=== PATIENT | female | born 1940 | race Caucasian/White ===

== ENCOUNTER 2020-11-25 10:34 | Outpatient (CLI) | payer MEDICARE, BC, OTHER, SELFPAY ==
--- NOTE | ~2020-11-25 | MM_ITS ---
EXAMINATION: MM screening yolande BI w percy HISTORY: Screening mammogram, history of left breast cancer TECHNIQUE: Craniocaudal and mediolateral oblique 3-D tomosynthesis images were obtained and synthetic 2-D images were generated. CAD analysis was submitted and interpreted. COMPARISON: 10/29/2019, 10/23/2018, 10/09/2017 BREAST PARENCHYMAL COMPOSITION: There are scattered areas of fibroglandular density. FINDINGS: There are stable lumpectomy changes in the left breast. There is no evidence of suspicious mass, calcification, or architectural distortion to suggest malignancy in either breast. There has be en no suspicious interval change. IMPRESSION: 1. No mammographic evidence of malignancy. 2. Recommend routine screening mammography in one year. BI-RADS Category 2: Benign finding(s). Reviewed, dictated and finalized at location A. CULTURAL EXTENSION OFFICER
== END 2020-11-25 10:35 | disposition home or self-care (01) ==
PROVIDERS: PCP Family Medicine; Visit Provider Family Medicine
DX: Z12.31 Encounter for screening mammogram for malignant neoplasm of breast (principal)
CPT/HCPCS: 77063; 77067

== ENCOUNTER 2024-12-24 09:27 | Outpatient (RCR) | payer MEDICARE, BC, OTHER, SELFPAY ==
--- NOTE | 2024-12-24 11:16 | OPREHPOC ---
Outpatient Therapy Plan of Care This is a Multidisciplinary Plan of Care that may contain components documented by all disciplines (PT, OT, and ST.) PT Problem 1 PT Problem #1 Knowledge Deficit PT Goal 1 Goal / Goal Update 1. independent and compliant with HEP Target Visit 6 PT Problem 2 PT Problem #2 Pain PT Goal 1 Goal / Goal Update 1. patient to report 50% reduction in pain/ tingling symptoms in the R lower leg. Target Visit 12 PT Problem 3 PT Problem #3 Impaired Strength PT Goal 1 Goal / Goal Update 1. 5/5 bilateral DF 2. 5/5 bilateral knee strength 3. 4+/5 or better bilateral hip strength Target Visit 12 PT Problem 4 PT Problem #4 Impaired Balance PT Goal 1 Goal / Goal Update 1. tinetti to display moderate fall risk or less Target Visit 12 PT Problem 5 PT Problem #5 Impaired Functional Mobility PT Goal 1 Goal / Goal Update 1. patient to display improved confidence in ambulation 2. no falls reported, and no buckling of the R knee 3. LEFS to display 40% or less functional deficits 4. oswestry to display 30% or less functional deficits Target Visit 12
--- NOTE | 2024-12-24 11:16 | PTOPEVAL1 ---
Assessment and note entered by JT File, PT Evaluation Information Assessment Status Evaluation ICD-10 Condition Codes (PT) Radiculopathy, lumbar region M54.16,Pain in right knee M25.561,Pain in right ankle and joints of right foot M25.571 Other ICD-10 Condition Codes ( S93.409A; S83.206A PT) Subjective Information patient reports her doctor told her she has several issues with her R leg. she reports she been feeling worse for several months. she reports she has pain in the R LE when she tries to walk. she reports the leg will collapse and give out on her. she reports she is afraid she is going to fall and break something. she reports a few years ago she fell in the shower and tore her meniscus in the R knee. she reports she also has pain in the R ankle and in the R lower back. she reports she is going to have an nerve conduction test of the R LE to rule out sciatica. she reports from the knee down she will at times have numbness in the R LE. she reports she has not had falls, but has to hold onto objects all over her house and her walker to prevent falling. Reported Pain Level Pain Score 2: Self Report Assessment PT Clinical Summary mrs. bañuelos is an 84 yo woman who presents to skilled PT services for evaluation of R LE pain. she presents today with signs and symptoms consistent with R lumbar radiculopathy, R medial meniscus injury, and R lateral ankle injury. she displays decreased LE strength, mm tightness, core weakness, poor balance, and unsteady/abnormal gait mechanics. she would benefit from continued skilled PT to address her objective/functional deficits and progress towards a return to her prior level functional activity performance/ quality of life. Plan of Care Interventions Electrical Stimulation,Gait Training,Hot Pack/Cold Pack,Manual Therapy,Neuro Re-education,Patient/ Caregiver Education,Therapeutic Activities, Therapeutic Exercise PT Services Indicated Yes Treatment Frequency and 3x weekly for 12 visits Duration These treatments will address the objective and functional deficits as defined above. The patient will be advanced safely and appropriately in order for the patient to progress towards his/her prior level of function. Additional exercises will be introduced and as well as a comprehensive home exercise program upon discharge, if needed, ?to ensure carryover of functional gains achieved in the clinic. This treatment plan has been reviewed and agreement upon by the patient.
--- NOTE | 2025-01-14 08:10 | OPREHPOC ---
Outpatient Therapy Plan of Care This is a Multidisciplinary Plan of Care that may contain components documented by all disciplines (PT, OT, and ST.) PT Problem 1 PT Problem #1 Knowledge Deficit PT Goal 1 Goal / Goal Update 1. independent and compliant with HEP Target Visit 6 Progress Met PT Problem 2 PT Problem #2 Pain PT Goal 1 Goal / Goal Update 1. patient to report 50% reduction in pain/ tingling symptoms in the R lower leg. Target Visit 12 Progress Not Met PT Problem 3 PT Problem #3 Impaired Strength PT Goal 1 Goal / Goal Update 1. 5/5 bilateral DF 2. 5/5 bilateral knee strength 3. 4+/5 or better bilateral hip strength Target Visit 12 Progress Met PT Problem 4 PT Problem #4 Impaired Balance PT Goal 1 Goal / Goal Update 1. tinetti to display moderate fall risk or less Target Visit 12 Progress Not Met PT Problem 5 PT Problem #5 Impaired Functional Mobility PT Goal 1 Goal / Goal Update 1. patient to display improved confidence in ambulation 2. no falls reported, and no buckling of the R knee -no falls but continues to report knee buckling 3. LEFS to display 40% or less functional deficits 4. oswestry to display 30% or less functional deficits Target Visit 12 Progress Not Met
--- NOTE | 2025-01-14 08:10 | PTOPPROG ---
Assessment and note entered by Shavon Minor, PT Evaluation Information Assessment Status Progress ICD-10 Condition Codes (PT) Radiculopathy, lumbar region M54.16,Pain in right knee M25.561,Pain in right ankle and joints of right foot M25.571 Other ICD-10 Condition Codes ( S93.409A; S83.206A PT) Subjective Information Brinda states she feels about the same since beginning therapy, overall not any better but not any worse. She still experiences pain in the low back with numbness in the R leg, and pain continues to increase with transitional movements such as moving from sitting to supine as well as with any activities in weight bearing. She still uses a WW for ambulation due to reports of feeling like her knee will give out and feeling scared of falling. She will be getting a nerve test on February 01. Assessment PT Clinical Summary Mrs. Roth has attended 10 total skilled PT visits addressing low back pain with radicular symptoms down the R leg as well as R knee and ankle pain from prior falls. Since beginning therapy she has made good improvements in her LE strength but her functional status remains relatively unchanged. She continues to experiences R leg pain with any weight bearing activities as well as back and leg pain with transitional activities such as move from sitting to supine. She will benefit from continued skilled PT intervention to reduce pain and improve function. Plan of Care Interventions Electrical Stimulation,Gait Training,Hot Pack/Cold Pack,Manual Therapy,Neuro Re-education,Patient/ Caregiver Education,Therapeutic Activities, Therapeutic Exercise,Self-Care/Home Management PT Services Indicated Yes Treatment Frequency and Continue per POC Duration These treatments will address the objective and functional deficits as defined above. The patient will be advanced safely and appropriately in order for the patient to progress towards his/her prior level of function. Additional exercises will be introduced and as well as a comprehensive home exercise program upon discharge, if needed, ?to ensure carryover of functional gains achieved in the clinic. This treatment plan has been reviewed and agreement upon by the patient.
--- NOTE | 2025-01-18 07:55 | OPREHPOC ---
Outpatient Therapy Plan of Care This is a Multidisciplinary Plan of Care that may contain components documented by all disciplines (PT, OT, and ST.) PT Problem 1 PT Problem #1 Knowledge Deficit PT Goal 1 Goal / Goal Update 1. independent and compliant with HEP Target Visit 6 Progress Met PT Problem 2 PT Problem #2 Pain PT Goal 1 Goal / Goal Update 1. patient to report 50% reduction in pain/ tingling symptoms in the R lower leg. Target Visit 12 Progress Not Met PT Problem 3 PT Problem #3 Impaired Strength PT Goal 1 Goal / Goal Update 1. 5/5 bilateral DF 2. 5/5 bilateral knee strength 3. 4+/5 or better bilateral hip strength Target Visit 12 Progress Not Met PT Problem 4 PT Problem #4 Impaired Balance PT Goal 1 Goal / Goal Update 1. tinetti to display moderate fall risk or less Target Visit 12 Progress Not Met PT Problem 5 PT Problem #5 Impaired Functional Mobility PT Goal 1 Goal / Goal Update 1. patient to display improved confidence in ambulation. not met 2. no falls reported, and no buckling of the R knee. no falls but continues to report knee buckling 3. LEFS to display 40% or less functional deficits . not met 4. oswestry to display 30% or less functional deficits. met Target Visit 12 Progress Not Met
--- NOTE | 2025-01-18 07:55 | PTOPDC ---
Assessment and note entered by JT File, PT Evaluation Information Assessment Status Discharge ICD-10 Condition Codes (PT) Radiculopathy, lumbar region M54.16,Pain in right knee M25.561,Pain in right ankle and joints of right foot M25.571 Other ICD-10 Condition Codes ( S93.409A; S83.206A PT) Subjective Information patient reports she is really no better since beginning skilled PT. she reports she is no worse, but continues to have pain in the lower back and numbness down the R LE. she reports the R LE still feels like is ervin under her. she reports it is not always with movement or walking, but sometimes she can simply be standing in place. she reports it gets real weak still. Reported Pain Level Pain Score 6,2: Self Report Pain Score 6: Self Report Assessment PT Clinical Summary mrs. bañuelos presents to skilled PT services for her 12th skilled PT visit for lumbar radiculopathy and lower back pain. she has not met any goals for skilled PT, and reports feeling no change in her pain or symptoms. she is scheduled for a nerve conduction test soon. as of this date, we will DC skilled PT, and patient will continue with HEP independent at home. Plan of Care PT Services Indicated Yes
== END 2025-01-18 20:00 | disposition home or self-care (01) ==
LOC: CHSPT 09:27
PROVIDERS: Visit Provider Family Medicine
DX: S93.409A Sprain of unspecified ligament of unspecified ankle, initial encounter (principal); S83.206A Unspecified tear of unspecified meniscus, current injury, right knee, initial encounter; M54.16 Radiculopathy, lumbar region
CPT/HCPCS: 97014; 97110; 97112; 97140; 97161; 97530; G0283

== ENCOUNTER 2025-02-01 12:20 | Outpatient (CLI) | payer MEDICARE, BC, OTHER, SELFPAY ==
--- OUTSIDE RECORDS SUMMARY | 2025-02-01 13:21 | XMS_ITS | Referral Summary ---
Author Organization [facility] Address [address] [place] [address] Phone Care Team Providers Care Forwarder Operator Name Role Phone Alejandro Verduzco MD Primary Care Provider [phone] Kin Carty MD Unavailable [phone] Allergies Active Allergy Reactions Criticality Noted Date Comments Iodinated Contrast Media Unknown 05/07/2018 Latex Penicillins Sulfasalazine Unknown 06/03/2016 Medications amLODIPine (NORVASC) 10 mg tablet 05/07/2016 Active olmesartan-hydr ochlorothiazide (BENICAR HCT) 20-12.5 mg per tablet 05/07/2016 Active furosemide (LASIX) 40 mg tablet 60 mg for 1 week started 05/04/2020 10 04/10/2018 Active loratadine (CLARITIN) 10 mg tablet Take by mouth. 09/14/2008 Active metoprolol XL (TOPROL-XL) 100 mg 24 hr tablet 10 04/10/2018 Act lidia simvastatin (ZOCOR) 10 mg tablet 10 04/10/[address] (ACIPHEX) 20 mg EC tablet 2 (two) times a day 1 04/13/2018 Active vit D3-vit W-httkrlzlx-vps s [id number] cyfp-sfe-jn-mg tablet Take by mouth. Active nitroglycerin (NITROSTAT) 0.4 mg SL tablet 0 03/11/2019 Active olmesartan-hydr ochlorothiazide (BENICAR HCT) 40-25 mg per tablet 11 04/13/2019 Active anastrozole (ARIMIDEX) 1 mg tablet TAKE 1 TABLET BY MOUTH DAILY 30 tablet 5 04/13/2020 Active atorvastatin (LIPITOR) 10 mg tablet 04/13/2020 Active Active Problems Problem Noted Date Diagnosed Date Malignant neoplasm of breast 11/23/2014 Immunizations Immunization Administration Dates Next Due Influenza, Quadrivalent, Spl it, Preservative Free, Intramuscular 08/16/2013 Influenza, Trivalent, IM (MDV) 07/02/2014,2011 Influenza, Unspecified 08/04/2019 ZOSTER Recombinant 04/05/2020 Social History Tobacco Use Types Packs/Day Years Used Date Smoking Tobacco: Never Smokeless Tobacco: Never Alcohol Use Standard Drinks/Week Comments No 0 (1 standard drink = 0.6 oz pur e alcohol) Personal Safety Answer Date Recorded Getting School Help Needed Not on file 12/19 Comments Unknown Sex and Gender Information Value Date Recorded Sex Assigned at Not on file 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 Gender Identity Not on file Sexual Orientation Not on file Last Filed Vital Signs Vital Sign Reading Time Taken Comments Blood Pressure 116/76 05/05/2020 11:47 AM CDT Pulse 76 05/05/2020 11:47 AM CDT Temperature 36.9 C (98.5 F) 05/05/2020 11:47 AM CDT Respiratory Rate 16 05/05/2020 11:47 AM CDT Oxygen Saturation 97% 05/05/2020 11:47 AM CDT Inhaled Oxygen Concentration - - Weight 81.3 kg (179 lb 3.2 oz) 05/05/2020 11:47 AM CDT Height 160 cm (5' 3 ) 05/05/2020 11:47 AM CDT Body Mass Index 31.74 05/05/2020 11:47 AM CDT Plan of Treatment Not on file Insurance MEDICARE FOR LIFE [facility] Care Teams Forwarder Operator Relationship Specialty Start Date End Date Alejandro Verduzco MD PCP - General Family Medicine 04/20/18 Kin Carty MD Medical Oncologist/Material Spreader Hematology and Oncology 05/07/18
--- OUTSIDE RECORDS SUMMARY | 2025-02-01 13:21 | XMS_ITS | Clinical Summary ---
Author Organization [facility] Address [address] [place] [address] Phone Care Team Providers Care Livestock Sales Representative Name Role Phone Alejandro Verduzco MD Primary Care Provider [phone] Kin Carty MD Unavailable [phone] Allergies Active Allergy Reactions Criticality Noted [...] a day 1 04/13/2018 Active vit D3-vit P-pqorvwfdq-ngg s [id number] khag-nud-zf-mg tablet Take by mouth. Active nitroglycerin (NITROSTAT) [...] 07/02/2014,2011 Influenza, Unspecified 08/04/2019 ZOSTER Recombinant 04/05/2020 Surgical History Surgery Date Site/Laterality Comments BREAST BIOPSY BREAST LUMPECTOMY UPPER GASTROINTESTINAL ENDOSCOPY COLONOSCOPY Medical History Medical History Date Comments Breast cancer (HCC) Family History Medical History Relation Name Comments Breast cancer Sister 1 Adenocarcinoma of breast - (Added by TW Conv) Non-Hodgkin's Lymphoma Sister 2 Famil y history of non-Hodgkin's lymphoma - (Added by TW Conv) Relation Name Status Comments Sister 1 Sister 2 Social History Tobacco Use Types Packs/Day Years [...] on file 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
--- OUTSIDE RECORDS SUMMARY | 2025-02-01 13:21 | XMS_ITS | Encounter Summary ---
Author Organization [facility] Address [address] [place] [address] Care Team Providers Care Channel Executive Name Role Phone Zana Sauceda MD Unavailable Unavailable Alejandro Verduzco MD Primary Care Provider [phone] Mayra Lugo MD Unavailable Encounter Details Date Type Department Care Team (Late st Contact Info) Description 06/14/2020 Abstract [facility] [address] [place] [id number] Abstract, Doc [facility] Social History Tobacco Use Types Packs/Day Years Used Date Smoking Tobacco: Never Smokeless Tobacco: Never Alcohol Use Standard Drinks/Week Comments No 0 (1 standard drink = 0.6 oz pur e alcohol) Comments Unknown Sex and Gender Information Value Date Recorded Sex Assigned at Female 11/10/2024 10:22 AM SENIOR BIOINFORMATICS SCIENTIST Legal Sex Female 10:25 PM CDT Gender Identity Not on file Sexual Orientation Not on file 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 No / Unsure 06/05/2020 7:34 AM CDT documented as of this encounter Plan of Treatment Not on file documented as of this encounter Procedures Procedure Name Priority Date/Time Associated Diagnosis Comments CMP (OUTSIDE LAB) Routine 05/14/2020 LIPID PANEL Routine 05/14/2020 documented in this encounter Results * LIPID PANEL (05/14/2020) CHOLESTEROL 127 HDL 43 TRIGLYCERIDES 67 CHOL/HDL RATIO 3.0 LDL (CALCULATED) 71 VLDL CALCULATION 13 05/14/2020 Alejandro Verduzco MD LABORATORY Final Result * CMP (OUTSIDE LAB) (05/14/2020) SODIUM S/P/B 143 POTASSIUM S/P/B 4.6 CHLORIDE S/P/B 103 CO2 26 BUN 18 CREATININE S/P/B 0.86 0.5 - 1.0 EGFR AFR. AMER. 74 <=90 EGFR NON-AFR. AMER. 64 <=90 CALCIUM S/P/B 9.5 GLUCOSE 105 mg/dL TOTAL PROTEIN S/P/B 6.5 ALBUMIN S/P/B 3.9 3.5 - 5.0 AST 18 ALT 13 ALKALINE PHOSPHATASE S/P/B 114 BILIRUBIN TOTAL S/P/B 0.4 05/14/2020 Alejandro Verduzco MD LAB-OUTSIDE/ABSTRACTED Final R esult documented in this encounter Visit Diagnoses Not on filedocumented in this encounter Care Teams Channel Executive Relationship Specialty Start Date End Date Alejandro Verduzco MD [address] [place] [id number] PCP - General FAMILY PRACTICE 04/01/17 Zana Sauceda MD INTERVENTIONAL CARDIOLOGY 05/13/16 02/12/21 Mayra Lugo MD [address] [place] [address] Consulting Physician CARDIOVASCULAR DISEASE 02/13/21 documented as of this encounter
--- OUTSIDE RECORDS SUMMARY | 2025-02-01 13:21 | XMS_ITS | Clinical Summary ---
Author Organization [facility] Address [facility] [place] [address] Care Team Providers Care Automotive Glass Installer Name Role Phone Alejandro Verduzco MD Primary Care Provider [phone] Mayra Lugo MD Unavailable Allergies Active Allergy Reactions Criticality Noted Date Comments Iodine Unknown 06/30/2019 Latex Unknown 06/30/2019 Sulfa Antibiotics Unknown 06/03/2016 Sulfasalazine Unknown 06/03/2016 Medications loratadine (CLARITIN) 10 MG tablet Take by mouth daily. 09/14/2008 Active amlodipine 10 MG tablet Take 10 mg by mouth daily. 2 05/07/2016 Active metoprolol succinate 100 MG 24 hr tablet Take 100 mg by mouth daily. 5 05/07/2016 Active furosemide 40 MG tablet Take 60 mg by mouth daily. 11 06/15/2019 Active rabeprazole EC 20 MG tablet Take 20 mg by mouth 2 (two) times a day. 5 06/15/2019 Active vitamin D3, cholecalciferol , 400 units tablet Take 400 Units by mouth daily. Active atorvastatin 10 MG tablet Take 1 tablet by mouth daily. 07/10/2020 Active nitroglycerin 0.[address] 1 tablet (0.4 mg total) under the tongue every 5 (five) minutes as needed for Chest Pain. 25 tablet 1 04/06/2021 Active Active Problems Problem Noted Date Diagnosed Date Hypertensive heart disease without heart failure 08/04/2019 Complex tear of medial menis cus of right knee as current injury, subsequent encounter 07/22/2019 Right knee pain, unspecified chronicity 07/13/20 Primary osteoarthritis of right knee 07/03/2019 Impaired gait 07/03/2019 Dyspnea on exertion 06/28/2019 Chronic venous insufficiency 04/03/2017 Breast cancer ([facility]) 06/03/2016 Essential hypertension 06/03/2016 Bilateral edema of lower extremity 06/03/2016 Hypercholesteremia 06/03/2016 Resolved Problems Problem Noted Date Diagnosed Date Resolved Date Pre-operative cardiovascular examination 08/04/2019 06/16/2020 Shortness of breath 06/03/2016 06/03/20 16 Encounters Date Type Department Care Team Description 11/10/2024 10:24 AM FUEL CELL ASSEMBLER - 11/10/2024 11:59 PM FUEL CELL ASSEMBLER Hospital Encounter [facility] [address] [place] [address] Marquita Vazquez, PA Discharge Disposition: Home or Self Care (Routine Discharge) 11/10/2024 Travel from Last 3 Months Immunizations Immunization Administration Dates Next Due Fluzone High Dose - >Age 65 (Prefilled Syringe) 09/21/2021,07/11/2021,07/15/2020 Influenza (Generic) 08/04/2019,07/02/2014,2011 Influenza Adult (Generic) 08/16/2013 Shingrix 04/05/2020 Family History Medical History Relation Comments Coronary artery disease Father TB Father Coronary artery disease Mother TB Mother Relation Status Comments Father Mother of CAD Other Other Family history i s positive for coronary heart disease Social History Tobacco Use Types Packs/Day Years Used Date Smoking Tobacco: Never Smokeless Tobacco: Never Alcohol Use Standard Drinks/Week Comments No 0 (1 standard drink = 0.6 oz pur e alcohol) Comments No Sex and Gender Information Value Date Recorded Sex Assigned at Female 11/10/2024 10:22 AM FUEL CELL ASSEMBLER Legal Sex Female 10:25 PM CDT Gender Identity Not on file Sexual Orientation Not on file 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 Not on file Not on fi le Last Filed Vital Signs Vital Sign Reading Time Taken Comments Blood Pressure 130/64 04/06/2021 9:36 AM CDT Pulse 75 04/06/2021 9:35 AM CDT Temperature - - Respiratory Rate 18 04/06/2021 9:35 AM CDT Oxygen Saturation 97% 04/06/2021 9:35 AM CDT Inhaled Oxygen Concentration - - Weight 82.6 kg (182 lb) 04/06/2021 9:35 AM CDT Height 160 cm (5' 3 ) 04/06/2021 9:35 AM CDT Body Mass Index 32.24 04/06/2021 9:35 AM CDT Plan of Treatment Health Maintenance Due Date Last Done Comments DTaP, Tdap and Td Vaccines ( 1 - Tdap) 1959 Pneumococcal Vaccine: 50+ Years (1 of 1 - PCV) 1990 Annual Medicare Wellness Visit 2005 RSV Immunization or 60+ Years (1 - 1-dose 75+ series) 2015 Zoster Vaccines (2 of 2) 05/31/2020 04/05/2020 COVID-19 Vaccine (4 - 2023-2 5 season) 2024 08/20/2021, 2020, 11/07/2020 Dexa Scan (General) Completed 05/29/2021 Meningococcal B Vaccine Aged Out No l onger eligible based on patient's age to complete this topic Meningococcal Vaccine Aged Out No oliver hector eligible based on patient's age to complete this topic RSV Immunizations Under 20 Months Aged Out No longer eligible b ased on patient's age to complete this topic Procedures Procedure Name Priority Date/Time Associated Diagnosis Comments XR KNEE RT 3V Routine 11/10/2024 11:37 AM FUEL CELL ASSEMBLER Pain in right knee US KACIE DUPLEX LOW EXT RT STAT 11/10/2024 11:06 AM FUEL CELL ASSEMBLER Right calf pain BONE DENSITY/DEXA Routine 05/29/2021 9:2 9 AM CDT Postmenopausal from Last 3 Months or Most Recently Relevant to Health Maintenance Results * XR KNEE RT 3V (11/10/2024 11:37 AM FUEL CELL ASSEMBLER) Anatomical Region Laterality Modality Knee Radiographic Ginna ging 11/11/2024 7:16 PM FUEL CELL ASSEMBLER Impressions 11/11/2024 7:17 PM FUEL CELL ASSEMBLER IMPRESSION: No acute findings. Mild degenerative changes. Referred By: MARQUITA VAZQUEZ Interpreted By: Aden Roth MD, 11/11/2024 7:16 PM Narrative 11/11/2024 7:17 PM FUEL CELL ASSEMBLER [address] [place] [address] Examination: Right knee. Exam time: 1112 hours. Clinical history: Pain. Comparison: 06/29/2019. Technique: Three views. Findings: No fracture, dislocation or other acute bony abnormality is identified. There are mild degenerative changes manifested by patellofemoral and medial femorotibial joint space narrowing and periarticular osteophyte formation. No other significant bone or joint abnormality is noted.Atherosclerotic calcification is noted. The soft tissues are otherwise unremarkable. Procedure Note dAen Roth MD - 11/11/[address] [place] [address] Examination: Right knee. Exam time: 1112 hours. Clinical history: Pain. Comparison: 06/29/2019. Technique: Three views. Findings: No fracture, dislocation or other acute bony abnormality isidentified. There are mild degenerative changes manifested bypatellofemoral and medial femorotibial joint space narrowing andperiarticular osteophyte formation. No other significant bone or jointabnormality is noted.Atherosclerotic calcification is noted. The softtissues are otherwise unremarkable. IMPRESSION: No acute findings. Mild degenerative changes. Referred By: MARQUITA VAZQUEZ Interpreted By: Aden Roth MD, 11/11/2024 7:16 PM us [facility] Final Result * US KACIE DUPLEX LOW EXT RT (11/10/2024 11:06 AM FUEL CELL ASSEMBLER) Anatomical Region Laterality Modality NA Ultrasound 11/10/2024 11:1 4 AM FUEL CELL ASSEMBLER Impressions 11/10/2024 11:14 AM FUEL CELL ASSEMBLER IMPRESSION: No evidence of deep venous thrombosis. Ordered By: MARQUITA VAZQUEZ Interpreted By: Aden Roth MD, 11/10/2024 11:14 AM Narrative 11/10/2024 11:14 AM FUEL CELL ASSEMBLER [address] [place] [address] Examination: Right lower extremity venous color Doppler ultrasound. Exam time: 1048 hours. Clinical history: Calf pain. Comparison: 02/25/2018. Technique: Grayscale and color Doppler images including spectral analysis. Findings: Color Doppler evaluation of the deep veins of the right lower extremity demonstrates normal appearing color flow, spectra and compressibility throughout. No intraluminal filling defects are identified. Procedure Note Aden Roth MD - 11/10/2024 [facility] [address] [place] [address] Examination: Right lower extremity venous color Doppler ultrasound. Exam time: 1048 hours. Clinical history: Calf pain. Comparison: 02/25/2018. Technique: Grayscale and color Doppler images including spectralanalysis. Findings: Color Doppler evaluation of the deep veins of the right lowerextremity demonstrates normal appearing color flow, spectra andcompressibility throughout. No intraluminal filling defects areidentified. IMPRESSION: No evidence of deep venous thrombosis. Ordered By: MARQUITA VAZQUEZ Interpreted By: Aden Roth MD, 11/10/2024 11:14 AM [facility] Final Result * BONE DENSITY/DEXA (05/29/2021 9:29 AM CDT) Anatomical Region Laterality Modality Bone Bone Density 05/30/2021 8:14 PM CDT Impressions 05/30/2021 8:16 PM CDT Impression: Within normal limits in the lumbar spine and both hips. Referred By: ALEJANDRO VERDUZCO Interpreted By: Aden Roth MD, 05/30/2021 8:14 PM Narrative 05/30/2021 8:16 PM CDT Examination: DEXA Bone densitometry Clinical history: Postmenopausal. Osteoporosis screening. Comparison: None. Technique: DEXA bone mineral density evaluation was performed in the AP projection over the lumbar spine and over both hips in the AP projection utilizing standard imaging techniques. Assessment: The BMD measured at the AP spine L1-L4 is 1.019 g/cm2 with a T-score of 0.3 and a Z-score of 2.4. Bone density is up to 10% below young normal. This patient is considered normal according to the World Health Organization (WHO) criteria. Fracture risk is low. The BMD measured at the femur total left is 0.875 g/cm2 with a T-score of by 0.5 and a Z-score of 1.5. Bone density is up to 10% below young normal. This patient is considered normal according to the World Health Organization (WHO) criteria. Fracture risk is low. The BMD measured at the femur total right is 0.878 g/cm2 with a T-score of -0.5 and a Z-score of 1.6. Bone density is up to 10% below young normal. This patient is considered normal according to the World Health Organization (WHO) criteria. Fracture risk is low. Recommendations: All patients should ensure an adequate intake of dietary calcium and vitamin D. The NOF recommend adults under the age of 50 need 1000 mg of calcium and 400-800 IU of vitamin D daily. Effective therapy for the prevention and treatment of osteoporosis include biphosphonates. Follow-up: People with diagnosed cases of osteoporosis or at high risk for fracture should have regular bone mineral density test. For patients eligible for Medicare, routine testing is allowed once every 2 years. Testing frequency can be increased to one year for patients who have rapidly progressing disease, those who are receiving or discontinuing medical therapy to restore bone mass, or have additional risk factors. Based on these results, a followup exam is recommended in two years. Procedure Note Aden Roth MD - 05/30/2021 Examination: DEXA Bone densitometry Clinical history: Postmenopausal. Osteoporosis screening. Comparison: None. Technique: DEXA bone mineral density evaluation was performed in the APprojection over the lumbar spine and over both hips in the AP projectionutilizing standard imaging techniques. Assessment: The BMD measured at the AP spine L1-L4 is 1.019 g/cm2 with a T-score of0.3 and a Z-score of 2.4. Bone density is up to 10% below young normal.This patient is considered normal according to the World HealthOrganization (WHO) criteria. Fracture risk is low. The BMD measured at the femur total left is 0.875 g/cm2 with a T-score ofby 0.5 and a Z-score of 1.5. Bone density is up to 10% below youngnormal. This patient is considered normal according to the World HealthOrganization (WHO) criteria. Fracture risk is low. The BMD measured at the femur total right is 0.878 g/cm2 with a T-score of-0.5 and a Z-score of 1.6. Bone density is up to 10% below youngnormal. This patient is considered normal according to the World HealthOrganization (WHO) criteria. Fracture risk is low. Recommendations: All patients should ensure an adequate intake of dietary calcium andvitamin D. The NOF recommend adults under the age of 50 need 1000 mg ofcalcium and 400-800 IU of vitamin D daily. Effective therapy for theprevention and treatment of osteoporosis include biphosphonates. Follow-up: People with diagnosed cases of osteoporosis or at high risk for fractureshould have regular bone mineral density test. For patients eligible forMedicare, routine testing is allowed once every 2 years. Testing frequencycan be increased to one year for patients who have rapidly progressingdisease, those who are receiving or discontinuing medical therapy torestore bone mass, or have additional risk factors. Based on these results, a followup exam is recommended in two years. Impression: Within normal limits in the lumbar spine and both hips. Referred By: ALEJANDRO VERDUZCO Interpreted By: Aden Roth MD, 05/30/2021 8:14 PM Alejandro Verduzco MD DEXA Final Result from Last 3 Months or Most Recently Relevant to Health Maintenance Insurance MEDICARE MEDICARE [facility] Advance Directives Documents on File Type Date Recorded Patient Application Support Manager Expl anation Power of Chemical Plant Operator Supervisor 08/13/2019 12:56 PM 08/10 POA FOR HEALTH CARE Care Teams Automotive Glass Installer Relationship Specialty Start Date End Date Alejandro Verduzco MD [address] [place] [phone] PCP - General FAMILY PRACTICE 04/01/17 Mayra Lugo MD [address] [place] [address] Consulting Physician CARDIOVASCULAR DISEASE 02/13/21
--- OUTSIDE RECORDS SUMMARY | 2025-02-01 13:21 | XMS_ITS | Encounter Summary ---
Author Organization [facility] Address [address] [place] [address] Care Team Providers Care Telecommunications Professional Name Role Phone Zana Sauceda MD Unavailable Unavailable Alejandro Verduzco MD Primary Care Provider [phone] Mayra Lugo MD Unavailable Encounter Details Date Type Department Care Team (Late st Contact Info) Description 05/26/2019 Abstract [facility] [address] [place] [id number] Abstract, Doc [facility] Social History Tobacco Use Types Packs/Day Years Used Date Smoking Tobacco: Never Smokeless Tobacco: Never Alcohol Use Standard Drinks/Week Comments No 0 (1 standard drink = 0.6 oz pur e alcohol) Comments Unknown Sex and Gender Information Value Date Recorded Sex Assigned at Female 11/10/2024 10:22 AM INTERMISSION COORDINATOR Legal Sex Female 10:25 PM CDT Gender Identity Not on file Sexual Orientation Not on file 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 Not on file Not on fi le documented as of this encounter Plan of Treatment Not on file documented as of this encounter Procedures Procedure Name Priority Date/Time Associated Diagnosis Comments LIPID PANEL (OUTSIDE LAB) Routine 05/14/2019 CMP (OUTSIDE LAB) Routine 05/14/2019 documented in this encounter Results * LIPID PANEL (OUTSIDE LAB) (05/14/2019) CHOLESTEROL 144 TRIGLYCERIDES 117 HDL 43 LDL (CALCULATED) 78 VLDL CALCULATION 23 CHOL/HDL RATIO 3.3 05/14/2019 us Doc [facility] Abstract LAB-OUTSIDE/ABSTRACTED Final Result * (ABNORMAL) CMP (OUTSIDE LAB) (05/14/2019) SODIUM S/P/B 142 POTASSIUM S/P/B 4.4 CHLORIDE S/P/B 102 CO2 25 BUN 20 CREATININE S/P/B 1.03(A) 0.5 - 1.0 EGFR AFR. AMER. 60 <=90 EGFR NON-AFR. AMER. 52 <=90 CALCIUM S/P/B 9.5 GLUCOSE 102 mg/dL TOTAL PROTEIN S/P/B 6.9 ALBUMIN S/P/B 3.8 3.5 - 5.0 AST 14 ALT 12 ALKALINE PHOSPHATASE S/P/B 101 BILIRUBIN TOTAL S/P/B 0.2 05/14/2019 us Doc [facility] Abstract LAB-OUTSIDE/ABSTRACTED Final Result documented in this encounter Visit Diagnoses Not on filedocumented in this encounter Care Teams Telecommunications Professional Relationship Specialty Start Date End Date Alejandro Verduzco MD [address] [place] [id number] PCP - General FAMILY PRACTICE 04/01/17 Zana Sauceda MD INTERVENTIONAL CARDIOLOGY 05/13/16 02/12/21 Mayra Lugo MD [address] [place] [address] Consulting Physician CARDIOVASCULAR DISEASE 02/13/21 documented as of this encounter
--- OUTSIDE RECORDS SUMMARY | 2025-02-01 13:21 | XMS_ITS | Encounter Summary ---
Author Organization [facility] Address [address] [place] [address] Phone Care Team Providers Care Terminal Clerk Name Role Phone Alejandro Verduzco MD Primary Care Provider [phone] Kin Carty MD Unavailable [phone] Encounter Details Date Type Department Care Team (Latest Contact Info) Description 10/29/2019 Orders Only [facility] Scanning, Provider Social History Tobacco Use Types Packs/Day Years Used Date Smoking Tobacco: Never Smokeless Tobacco: Never Alcohol Use Standard Drinks/Week Comments No 0 (1 standard drink = 0.6 oz pur e alcohol) Comments Unknown Sex and Gender Information Value Date Recorded Sex Assigned at Not on file Legal Sex Female 5:43 AM TROLLEY CLEANER Gender Identity Not on file Sexual Orientation Not on file documented as of this encounter Plan of Treatment Not on file documented as of this encounter Procedures Procedure Name Priority Date/Time Associated Diagnosis Comments SCAN - RADIOLOGY/IMAGING 10/29/2019 documented in this encounter Results * SCAN - RADIOLOGY/IMAGING (10/29/2019) Anatomical Region Laterality Modality Other us Provider Scanning Final Result documented in this encounter Visit Diagnoses Not on filedocumented in this encounter Care Teams Terminal Clerk Relationship Specialty Start Date End Date Alejandro Verduzco MD PCP - General Family Medicine 04/20/18 Kin Carty MD Medical Oncologist/Registered Nurse Cardiac Hematology and Oncology 05/07/18 documented as of this encounter
--- OUTSIDE RECORDS SUMMARY | 2025-02-01 13:21 | XMS_ITS | Encounter Summary ---
Author Organization [facility] Address [address] [place] [address] Care Team Providers Care Margarine Churn Operator Name Role Phone Toni Kat MD Primary Care Provider [phone] Zana Sauceda MD Unavailable Unavailable Alejandro Verduzco MD Primary Care Provider [phone] Mayra Lugo MD Unavailable Encounter Details Date Type Department Care Team (Late st Contact Info) Description 09/04/2012 Abstract [facility] [address] [place] [address] Zana Sauceda MD Social History Tobacco Use Types Packs/Day Years Used Date Smoking Tobacco: Never Alcohol Use Standard Drinks/Week Comments No 0 (1 standard drink = 0.6 oz pur e alcohol) Comments Unknown Sex and Gender Information Value Date Recorded Sex Assigned at Female 11/10/2024 10:22 AM SCALE ATTENDANT Legal Sex Female 10:25 PM CDT Gender Identity Not on file Sexual Orientation Not on file 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 Not on file Not on fi documented as of this encounter Plan of Treatment Not on file documented as of this encounter Visit Diagnoses Not on filedocumented in this encounter Care Teams Margarine Churn Operator Relationship Specialty Start Date End Date Toni Kat MD [address] [place] [address] PCP - General INTERNAL MEDICINE 05/13/16 06/02/16 Alejandro Verduzco MD [address] [place] [place] [phone] PCP - General FAMILY PRACTICE 04/01/17 Zana Sauceda MD [address] [place] [address] INTERVENTIONAL CARDIOLOGY 05/13/16 02/12/21 Mayra Lugo MD [address] [place] [address] Consulting Physician CARDIOVASCULAR DISEASE 02/13/21 documented as of this encounter
--- NOTE | 2025-02-01 14:45 | NEURO_ITS ---
Impression: # Complains of numbness of feet. ? # Normal Nerve Conduction Study. ? # Normal needle/EMG exam. ? # Clinical correlation recommended. Nerve Conduction Studies Anti Sensory Summary Table ?Stim Site NR Peak (ms) P-T Amp (?V) Site1 Site2 Delta-P (ms) Dist (cm) Tj (m/s) Left Sup Fibular Anti Sensory (Ant Lat Mall) 14 cm ? 3.0 4.2 14 cm Ant Lat Mall 3.0 16.0 53 Right Sup Fibular Anti Sensory (Ant Lat Mall) 14 cm ? 2.8 9.1 14 cm Ant Lat Mall 2.8 16.0 57 Left Sural Anti Sensory (Lat Mall) Calf ? 3.3 11.3 Calf Lat Mall 3.3 16.0 48 Right Sural Anti Sensory (Lat Mall) Calf ? 2.4 17.1 Calf Lat Mall 2.4 14.0 58 Motor Summary Table ?Stim Site NR Onset (ms) O-P Amp (mV) Site1 Site2 Delta-0 (ms) Dist (cm) Tj (m/s) Left Peroneal Motor (Vastus Med) Ankle ? 3.9 2.6 Popit Ankle 8.9 40.0 45 Popit ? 12.8 1.6 Right Peroneal Motor (Vastus Med) Ankle ? 3.8 4.6 Popit Ankle 8.2 42.0 51 Popit ? 12.0 4.4 Left Tibial Motor (Abd Rocha Brev) Ankle ? 4.0 6.9 Knee Ankle 7.7 40.0 52 Knee ? 11.7 4.6 Right Tibial Motor (Abd Rocha Brev) Ankle ? 3.8 4.4 Knee Ankle 7.8 40.0 51 Knee ? 11.6 3.2 F Wave Studies ?NR F-Lat (ms) L-R F-Lat (ms) Left Peroneal (Mrkrs) (EDB) ? 48.86 0.94 Right Peroneal (Mrkrs) (EDB) ? 47.93 0.94 Left Tibial (Mrkrs) (Abd Hallucis) ? 50.12 0.57 Right Tibial (Mrkrs) (Abd Hallucis) ? 49.56 0.57 EMG ?Side Muscle Nerve Root Ins Act Fibs Amp Dur Recrt Comment Right AntTibialis Dp Br Fibular L4-5 Nml Nml Nml Nml Nml Right Gastroc Tibial S1-2 Nml Nml Nml Nml Nml Right Fibularis Long Sup Br Fibular L5-S1 Nml Nml Nml Nml Nml Right Flex Dig Long Tibial L5-S2 Nml Nml Nml Nml Nml Right Ext Dig Brev Dp Br Fibular L5, S1 Nml Nml Nml Nml Nml Right QuadratusFem QuadFemoris L4-5, S1 Nml Nml Nml Nml Nml Left AntTibialis Dp Br Fibular L4-5 Nml Nml Nml Nml Nml Left Gastroc Tibial S1-2 Nml Nml Nml Nml Nml Left Fibularis Long Sup Br Fibular L5-S1 Nml Nml Nml Nml Nml Left Flex Dig Long Tibial L5-S2 Nml Nml Nml Nml Nml Left Ext Dig Brev Dp Br Fibular L5, S1 Nml Nml Nml Nml Nml Left QuadratusFem QuadFemoris L4-5, S1 Nml Nml Nml Nml Nml MTDD
== END 2025-02-01 12:21 | disposition home or self-care (01) ==
LOC: ANHNEURO 12:21
PROVIDERS: Visit Provider Family Medicine
DX: M54.16 Radiculopathy, lumbar region (principal)
CPT/HCPCS: 95886; 95910

== ENCOUNTER 2025-04-29 10:49 | Emergency (ER) | payer MEDICARE, BC, OTHER, SELFPAY ==
--- NOTE | ~2025-04-29 | XR_ITS ---
XR wrist LT min 3V 04/29/2025 11:36 INDICATION: Left wrist pain PROCEDURE: 4 views left wrist COMPARISON: No prior studies for comparison. FINDINGS: Fracture, dislocation or subluxation is not identified. Osteopenia. The soft tissues appear within normal limits. No foreign bodies are identified. IMPRESSION: 1: NO ACUTE BONE OR JOINT ABNORMALITY IDENTIFIED. Reviewed, dictated and finalized at location A.
--- OUTSIDE RECORDS SUMMARY | 2025-04-29 10:54 | XMS_ITS | Encounter Summary ---
Author Organization [facility] Address [address] [place] [address] Care Team Providers Care Medical Chief Technician Name Role Phone Toni Kat MD Primary Care Provider [phone] Zana Sauceda MD Unavailable Unavailable Alejandro Verduzco MD Primary Care Provider [phone] Mayra Lugo MD Unavailable Encounter Details Date Type Department Care Team (Late st Contact Info) Description 09/04/2012 Abstract [facility] [place] [address] [place] [address] Zana Sauceda MD Social History Tobacco Use Types Packs/Day Years Used Date Smoking Tobacco: Never Alcohol Use Standard Drinks/Week Comments No 0 (1 standard drink = 0.6 oz pur e alcohol) Comments Unknown Sex and Gender Information Value Date Recorded Sex Assigned at Female 11/10/2024 10:22 AM METAL BONDING WORKER Legal Sex Female 10:25 PM CDT Gender Identity Not on file Sexual Orientation Not on file 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 Not on file Not on fi le documented as of this encounter Plan of Treatment Not on file documented as of this encounter Visit Diagnoses Not on filedocumented in this encounter Care Teams Medical Chief Technician Relationship Specialty Start Date End Date Toni Kat MD [address] [place] [address] PCP - General INTERNAL MEDICINE 05/13/16 06/02/16 Alejandro Verduzco MD [address] [place] [address] PCP - General FAMILY PRACTICE 04/01/17 Zana Sauceda MD [address] [place] [address] INTERVENTIONAL CARDIOLOGY 05/13/16 02/12/21 Mayra Lugo MD [address] [place] [address] Consulting Physician CARDIOVASCULAR DISEASE 02/13/21 documented as of this encounter
--- OUTSIDE RECORDS SUMMARY | 2025-04-29 10:54 | XMS_ITS | Referral Summary ---
Author Organization [facility] Address [address] [place] [address] Phone Care Team Providers Care Head Of Marketing Name Role Phone Alejandro Verduzco MD Primary Care Provider [phone] Kin Carty MD Unavailable [phone] Allergies Active Allergy Reactions Criticality Noted [...] a day 1 04/13/2018 Active vit D3-vit D-bapglpgcw-vjd s [id number] uqjl-smf-tu-mg tablet Take by mouth. Active nitroglycerin (NITROSTAT) [...] on file Legal Sex Female 5:43 AM COLOR SEPARATION PHOTOGRAPHER Gender Identity Not on file Sexual Orientation [...] 11:47 AM CDT Height 160 cm (5' 3) 05/05/2020 11:47 AM CDT Body Mass Index 31.74 05/05/2020 11:47 AM CDT Plan of Treatment Not on file Insurance MEDICARE FOR LIFE [facility] Care Teams Head Of Marketing Relationship Specialty Start Date End Date Alejandro Verduzco MD PCP - General Family Medicine 04/20/18 Kin Carty MD Medical Oncologist/Flight Communications Officer Hematology and Oncology 05/07/18
--- OUTSIDE RECORDS SUMMARY | 2025-04-29 10:54 | XMS_ITS | Encounter Summary ---
Author Organization [facility] Address [address] [place] [address] Care Team Providers Care Director Educational Radio Name Role Phone Zana Sauceda MD Unavailable Unavailable Alejandro Verduzco MD Primary Care Provider [phone] Mayra Lugo MD Unavailable Encounter Details Date Type Department Care Team (Late st Contact Info) Description 05/26/2019 [facility] [address] [place] [id number] Abstract, Doc [facility] Social History Tobacco Use Types Packs/Day Years Used Date Smoking Tobacco: Never Smokeless Tobacco: Never Alcohol Use Standard Drinks/Week Comments No 0 (1 standard drink = 0.6 oz pur e alcohol) Comments Unknown Sex and Gender Information Value Date Recorded Sex Assigned at Female 11/10/2024 10:22 AM FAMILY SERVICE CENTER DIRECTOR Legal Sex Female 10:25 PM CDT Gender Identity Not on file Sexual Orientation Not on file 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
--- OUTSIDE RECORDS SUMMARY | 2025-04-29 10:54 | XMS_ITS | Clinical Summary ---
Author Organization [facility] Address [address] [place] [address] Care Team Providers Care Cfa Name Role Phone Alejandro Verduzco MD Primary Care Provider [phone] Mayra Lugo MD Unavailable Allergies Active Allergy [...] by mouth 2 (two) times a day. 06/15/2019 Active vitamin D3, cholecalciferol , 400 [...] 07/22/2019 Right knee pain, unspecified chronicity 07/13/20 19 Primary osteoarthritis of right knee 07/03/2019 Impaired gait 07/03/2019 Dyspnea on exertion 06/28/2019 Chronic venous insufficiency 04/03/2017 Breast cancer ([facility]) 06/03/2016 Essential hypertension 06/03/2016 Bilateral edema of lower extremity 06/03/2016 Hypercholesteremia 06/03/2016 Resolved Problems Problem Noted Date Diagnosed Date Resolved Date Pre-operative cardiovascular examination 08/04/2019 06/16/2020 Shortness of breath 06/03/2016 06/03/20 16 Encounters Date Type Department Care Team Description 02/18/2025 6:44 AM CDT - 02/18/2025 11:59 PM CDT Hospital Encounter [facility] [address] [place] [address] Jany Yin, PARTY PLAN SALES AGENT Discharge Disposition: Home or Self Care (Routine Discharge) 02/18/2025 Travel 02/09/2025 7:51 AM CDT - 02/09/2025 11:59 PM CDT Hospital Encounter [facility] [address] [place] [address] Alejandro Verduzco MD Discharge Disposition: Home or Self Care (Routine Discharge) 02/09/2025 Travel from Last 3 Months Immunizations Immunization [...] Sex Assigned at Female 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 Legal Sex Female 10:25 PM CDT Gender Identity Not on file Sexual Orientation Not on file 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 Not on file [...] 9:35 AM CDT Height 160 cm (5' 3) 04/06/2021 9:35 AM CDT Body Mass Index [...] Procedure Name Priority Date/Time Associated Diagnosis Comments MRI KNEE RT WO CON Routine 02/18/2025 8: 03 AM CDT Pain in right knee MRI LUMB SPINE WO CON Routine 02/09/2025 8:42 AM CDT Right lumbar radiculopathy BONE DENSITY/DEXA Routine 05/29/2021 9:2 9 AM CDT Postmenopausal from Last 3 Months or Most Recently Relevant to Health Maintenance Results * MRI KNEE RT WO CON (02/18/2025 8:03 AM CDT) Anatomical Region Laterality Modality Knee Magnetic Resonan ce 02/18/2025 9:34 AM CDT Impressions 02/18/2025 9:52 AM CDT IMPRESSION: Tear and degeneration posterior horn medial meniscus. Subcortical marrow edema or bony sclerosis in the medial tibial plateau with probable tiny linear cartilaginous defect in the cartilage on the medial tibial plateau extending to a small subcortical cysts. Small joint effusion. Small popliteal cyst. Ordered By: JANY YIN Interpreted By: Rocael Mckeon MD, 02/18/2025 9:34 AM Narrative 02/18/2025 9:52 AM CDT [place] [address] [facility] [place] [address] 02/18/2025, 7:35 AM. HISTORY: Right knee pain. Pain started in October. Knee gives out. History of right tibial plateau fracture and medial meniscal tear 6 years ago after a fall. No knee surgery. EXAM: MRI the right knee without contrast. MR imaging was performed in the axial, the sagittal and the coronal planes utilizing T1, proton density, fat sat proton density, fat sat T2 and T2 Rox thin section sequence imaging. Correlation to radiographic imaging 11/10/2024 and prior MR imaging 07/20/2019. FINDINGS: Horizontal tear to inferior apical surface posterior horn medial meniscus both also within the area of meniscal tear or degeneration The root of the posterior horn medial meniscus. The body and anterior horn of the medial meniscus and the lateral meniscus appear intact and normal. The cruciate ligaments, medial collateral ligament, distal quadriceps tendon and patellar tendons are intact and normal in appearance. No remarkable thinning of the articular cartilage on the femoral condyles, tibial plateaus nor dorsal patellar surfaces. Small joint effusion. Small popliteal cyst on the deep and medial surfaces of the medial head of the gastrocnemius. No marrow replacement or gross bone destruction distal femur, nor proximal fibula. There is some increased fat sat T2 signal in the subcortical region of the medial aspect of the medial tibial plateau which may indicate some bony sclerosis or fibrosis with a small thin sclerotic wall subcortical cyst seen on plain film imaging. This could be secondary to an old occult osteochondral fracture has there appears to be a tiny focal linear defect in the articular cartilage on the coronal fat sat proton density sequence 14. Procedure Note Rocael Mckeon MD - 02/18/2025 [facility] [address] [place] [address] 02/18/2025, 7:35 AM. HISTORY: Right knee pain. Pain started in October. Knee gives out. Historyof right tibial plateau fracture and medial meniscal tear 6 years agoafter a fall. No knee surgery. EXAM: MRI the right knee without contrast. MR imaging was performed in the axial, the sagittal and the coronal planesutilizing T1, proton density, fat sat proton density, fat sat T2 and T2Dess thin section sequence imaging. Correlation to radiographic imaging11/10/2024 and prior MR imaging 07/20/2019. FINDINGS: Horizontal tear to inferior apical surface posterior horn medialmeniscus both also within the area of meniscal tear or degeneration The root of the posterior horn medial meniscus. The body and anterior hornof the medial meniscus and the lateral meniscus appear intact and normal.The cruciate ligaments, medial collateral ligament, distal quadricepstendon and patellar tendons are intact and normal in appearance. Noremarkable thinning of the articular cartilage on the femoral condyles,tibial plateaus nor dorsal patellar surfaces. Small joint effusion. Smallpopliteal cyst on the deep and medial surfaces of the medial head of thegastrocnemius. No marrow replacement or gross bone destruction distalfemur, nor proximal fibula. There is some increased fat sat T2 signal inthe subcortical region of the medial aspect of the medial tibial plateauwhich may indicate some bony sclerosis or fibrosis with a small thinsclerotic wall subcortical cyst seen on plain film imaging. This could besecondary to an old occult osteochondral fracture has there appears to sumeet tiny focal linear defect in the articular cartilage on the coronal fatsat proton density sequence 14. IMPRESSION: Tear and degeneration posterior horn medial meniscus. Subcortical marrowedema or bony sclerosis in the medial tibial plateau with probable tinylinear cartilaginous defect in the cartilage on the medial tibial plateauextending to a small subcortical cysts. Small joint effusion. Smallpopliteal cyst. Ordered By: JANY YIN Interpreted By: Rocael Mckeon MD, 02/18/2025 9:34 AM us Jany Yin NP MRI Final Result * MRI LUMB SPINE WO CON (02/09/2025 8:42 AM CDT) Anatomical Region Laterality Modality Spine Magnetic Resonan ce 02/10/2025 2:34 PM CDT Impressions 02/10/2025 2:40 PM CDT IMPRESSION: Multilevel lumbar spinal canal, neural foraminal, and lateral recess narrowing as detailed level by level above. Referred By: ALEJANDRO VERDUZCO Interpreted By: Daquan Zhou DO, 02/10/2025 2:34 PM Narrative 02/10/2025 2:[address] PM [address] [place] [address] INDICATION: Right lumbar radiculopathy. Posterior right knee and calf pain without back pain. EXAMINATION: MRI lumbar spine without contrast. TECHNIQUE: Multiplanar, multisequence MRI of the lumbar spine was obtained without intravenous contrast. COMPARISON: None. FINDINGS: Patient motion artifact degrades image quality, which decreases sensitivity of the examination. There are 5 lumbar type vertebral bodies designated as L1 through L5; using this numbering system, the conus medullaris terminates at the level of the L1 superior endplate. No evidence is seen to suggest expansion or signal abnormality of the visualized conus medullaris or cauda equina. There is grade 1 anterolisthesis of L3 on L4 and L4 on L5. Facet alignments are maintained. Moderate degenerative disc disease affects L3-4 and L4-5 with relatively mild degenerative disc disease at the remaining lumbar levels. Lumbar vertebral body heights are maintained. No focal suspicious marrow signal abnormality is seen in the lumbar spine. The included lumbar paraspinal soft tissues demonstrate no gross signal abnormality Level by level evaluation is as follows: L1-L2: Diffuse disc bulge and facet hypertrophy with mild spinal canal narrowing and moderate right neural foraminal narrowing. L2-L3: Diffuse disc bulge and facet hypertrophy with moderate spinal canal narrowing, narrowing of the lateral recesses, and mild bilateral neural foraminal narrowing. L3-L4: Anterolisthesis with disc uncovering, diffuse disc bulge with superimposed far lateral left disc protrusion, facet hypertrophy, and ligamentous thickening with moderate to severe spinal canal narrowing, narrowing of the lateral recesses, moderate right neural foraminal narrowing, and mild left neural foraminal narrowing. L4-L5: Anterolisthesis with disc uncovering, diffuse disc bulge with superimposed central disc protrusion, facet hypertrophy, and ligamentous thickening with severe spinal canal narrowing, narrowing of the lateral recesses, and mild to moderate bilateral neural foraminal narrowing. L5-S1: Diffuse disc bulge and facet hypertrophy with left lateral recess narrowing at the moderate to severe left neural foraminal narrowing. Procedure Note Daquan Zhou, DO - 02/10/2025 [place] [address] [facility] [place] [address] INDICATION: Right lumbar radiculopathy. Posterior right knee and calfpain without back pain. EXAMINATION: MRI lumbar spine without contrast. TECHNIQUE: Multiplanar, multisequence MRI of the lumbar spine was obtained withoutintravenous contrast. COMPARISON: None. FINDINGS: Patient motion artifact degrades image quality, which decreasessensitivity of the examination. There are 5 lumbar type vertebral bodiesdesignated as L1 through L5; using this numbering system, the conusmedullaris terminates at the level of the L1 superior endplate. Noevidence is seen to suggest expansion or signal abnormality of thevisualized conus medullaris or cauda equina. There is grade 1anterolisthesis of L3 on L4 and L4 on L5. Facet alignments are maintained.Moderate degenerative disc disease affects L3-4 and L4-5 with relativelymild degenerative disc disease at the remaining lumbar levels. Lumbarvertebral body heights are maintained. No focal suspicious marrow signalabnormality is seen in the lumbar spine. The included lumbar paraspinalsoft tissues demonstrate no gross signal abnormality Level by levelevaluation is as follows: L1-L2: Diffuse disc bulge and facet hypertrophy with mild spinal canalnarrowing and moderate right neural foraminal narrowing. L2-L3: Diffuse disc bulge and facet hypertrophy with moderate spinal canalnarrowing, narrowing of the lateral recesses, and mild bilateral neuralforaminal narrowing. L3-L4: Anterolisthesis with disc uncovering, diffuse disc bulge withsuperimposed far lateral left disc protrusion, facet hypertrophy, andligamentous thickening with moderate to severe spinal canal narrowing,narrowing of the lateral recesses, moderate right neural foraminalnarrowing, and mild left neural foraminal narrowing. L4-L5: Anterolisthesis with disc uncovering, diffuse disc bulge withsuperimposed central disc protrusion, facet hypertrophy, and ligamentousthickening with severe spinal canal narrowing, narrowing of the lateralrecesses, and mild to moderate bilateral neural foraminal narrowing. L5-S1: Diffuse disc bulge and facet hypertrophy with left lateral recessnarrowing at the moderate to severe left neural foraminal narrowing. IMPRESSION: Multilevel lumbar spinal canal, neural foraminal, and lateral recessnarrowing as detailed level by level above. Referred By: ALEJANDRO VERDUZCO Interpreted By: Daquan Zhou DO, 02/10/2025 2:34 PM Alejandro Verduzco MD MRI Final Result * BONE DENSITY/DEXA (05/29/2021 9:29 [...] Maintenance Insurance MEDICARE MEDICARE [facility] Advance Directives Documents on File Type Date Recorded Patient Audio Specialist Expl anation Power of Commercial Insurance Underwriter 08/13/2019 12:56 PM 08/10 POA FOR HEALTH CARE Care Teams Cfa Relationship Specialty Start Date End Date Alejandro Verduzco MD [address] [place] [id number] PCP - General FAMILY PRACTICE 04/01/17 Mayra Lugo MD [address] [place] [address] Consulting Physician CARDIOVASCULAR DISEASE 02/13/21
--- OUTSIDE RECORDS SUMMARY | 2025-04-29 10:54 | XMS_ITS | Clinical Summary ---
Author Organization [facility] Address [address] [place] [address] Phone Care Team Providers Care Chief Juvenile Probation Officer Name Role Phone Alejandro Verduzco MD Primary Care Provider [phone] Kin Carty MD Unavailable [phone] Allergies Active Allergy Reactions Criticality Noted [...] a day 1 04/13/2018 Active vit D3-vit B-sdaeokntj-npd s [id number] spfk-azi-iz-mg tablet Take by mouth. 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 Care Teams Chief Juvenile Probation Officer Relationship Specialty Start Date End Date Alejandro Verduzco MD PCP - General Family Medicine 04/20/18 Kin Carty MD Medical Oncologist/Loadmaster Hematology and Oncology 05/07/18
--- OUTSIDE RECORDS SUMMARY | 2025-04-29 10:54 | XMS_ITS | Encounter Summary ---
Author Organization [facility] Address [address] [place] [address] Care Team Providers Care Home Organizer Name Role Phone Zana Sauceda MD Unavailable Unavailable Alejandro Verduzco MD Primary Care Provider [phone] Mayra Lugo MD Unavailable Encounter Details Date Type Department Care Team (Late st Contact Info) Description 06/14/2020 Abstract [facility] [address] [place] [id number] Abstract, Doc [facility] Social History Tobacco Use Types Packs/Day Years Used Date Smoking Tobacco: Never Smokeless Tobacco: Never Alcohol Use Standard Drinks/Week Comments No 0 (1 standard drink = 0.6 oz pur e alcohol) Comments Unknown Sex and Gender Information Value Date Recorded Sex Assigned at Female 11/10/2024 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 [place] [phone] PCP - General FAMILY PRACTICE 04/01/17 Zana Sauceda MD INTERVENTIONAL CARDIOLOGY 05/13/16 02/12/21 Mayra Lugo MD [address] [place] [address] Consulting Physician CARDIOVASCULAR DISEASE 02/13/21 documented as of this encounter
--- OUTSIDE RECORDS SUMMARY | 2025-04-29 10:54 | XMS_ITS | Encounter Summary ---
Author Organization [facility] Address [address] [place] [address] Phone Care Team Providers Care Thermostat Repairer Name Role Phone Alejandro Verduzco MD Primary Care Provider [phone] Kin Carty MD Unavailable [phone] Encounter Details Date Type Department Care Team [...] on file Legal Sex Female 5:43 AM RESOURCING ADVISOR Gender Identity Not on file Sexual Orientation [...] on filedocumented in this encounter Care Teams Thermostat Repairer Relationship Specialty Start Date End Date Alejandro Verduzco MD PCP - General Family Medicine 04/20/18 Kin Carty MD Medical Oncologist/Licensed Mass Real Estate Appraiser Hematology and Oncology 05/07/18 documented as of this encounter
[2025-04-29 11:03] VITALS: BP 153/81; PULSE 56; RESP 18; TEMP 36.6; O2SAT 99
--- NOTE | 2025-04-29 11:14 | ED.UPPEXIN ---
HPI - Extremity Injury (Upper) General Chief Complaint: Extremity Injury, Upper Stated Complaint: L wrist/hand pain after fall Time Seen by Provider: 04/29/25 11:03 History of Present Illness HPI narrative: Patient is an 84-year-old female who presents to the ER after sustaining a fall at [employer]. She reports her granddaughter was running next to her and they both fell to the ground. Patient endorses pain and bruising to her left wrist. She endorses mildly decreased range of motion in that joint. Patient denies any previous injury to that joint, pain to her left fingers, pain to her left elbow, or numbness/tingling to the area. She endorses a significant medical history including high blood pressure, diabetes, CHF, and hyperlipidemia. Related Data Home Medications ?Medication ?Instructions ?Recorded ?Confirmed ?Last Taken ?Type No Home Medications 08/16/19 08/16/19 Unknown History Allergies Allergy/AdvReac Type Severity Reaction Status Date / Time atorvastatin (Lipitor) Allergy Intermediate nausea Verified 09/27/19 09:05 adhesive Allergy Unknown TRANSPORE Verified 09/27/19 09:05 TAPE CAUSES REDNESS AND RASH iodine Allergy Unknown Unknown Verified 09/27/19 09:05 latex Allergy Unknown rash Verified 09/27/19 09:05 Penicillins Allergy Unknown UTI Verified 09/27/19 09:05 Sulfa (Sulfonamide Allergy Unknown Other Verified 09/27/19 09:05 Antibiotics) Sulfonamides Allergy Intermediate anxiety Uncoded 09/27/19 09:05 Contrast Media Allergy Unknown unknown Uncoded 09/27/19 09:05 Review of Systems Review of Systems: All systems reviewed & are unremarkable except as noted in HPI and below PMFSH Past Medical History Medical History Osteoarthritis of right knee Vision loss Family History Family History Father Family history of tuberculosis Family history of malignant neoplasm Family history of heart disease in male family member before age 55 Sibling Family history of diabetes mellitus in first degree relative Family history of heart disease in male family member before age 55 Family history of malignant neoplasm of breast in first degree relative Mother Family history of heart disease in male family member before age 55 Other Diabetes mellitus Family history of cardiovascular disease Family history of kidney disease Family history of lung disease Hypertension Social History Social History Smoking status: Never smoker Alcohol intake: never Substance use: unknown Occupation/Education: retired Gender identity (if verbalized by the patient): Female Spiritual care concerns: No Exam Narrative: GENERAL: Well appearing, well-nourished, non-toxic, in no acute distress. HEAD: Normocephalic, atraumatic. NECK: Supple. No adenopathy, no masses. RESPIRATORY: Airway patent, respirations nonlabored. Clear to auscultation bilaterally, no rales, rhonchi, wheezing. CARDIOVASCULAR: Regular rate and rhythm without murmurs, rubs, or gallops. Peripheral pulses 2+ and equal bilaterally. ABDOMINAL: Soft, nontender, nondistended, no hepatosplenomegaly. Normoactive BS. MUSCULOSKELETAL: Moves all extremities. Strength/ROM intact without gross deformities. Left wrist slightly decreased range of motion. Hematoma to dorsal carpus. SKIN: Warm, dry, normal color. No rashes. NEURO: A&O X3. Speech clear. Cranial nerves II-XII intact. No ataxic movements. PSYCHIATRIC: Appropriate mood and affect. Normal interaction. Course Vital Signs Vital signs: Vital Signs Temperature 36.6 C 04/29/25 11:03 Pulse Rate 56 L 04/29/25 11:03 Respiratory Rate 18 04/29/25 11:03 Blood Pressure 153/81 H 04/29/25 11:03 Pulse Oximetry 99 04/29/25 11:03 Oxygen Delivery Room Air 04/29/25 11:03 Temperature 36.6 C 04/29/25 11:03 Pulse Rate 56 L 04/29/25 11:03 Respiratory Rate 18 04/29/25 11:03 Blood Pressure 153/81 H 04/29/25 11:03 Pulse Oximetry 99 04/29/25 11:03 Oxygen Delivery Room Air 04/29/25 11:03 MDM - Extremity Injury (Upper) MDM Narrative Medical decision making narrative: Patient is an 84-year-old female who presents to the ER after sustaining a fall at [employer]. She reports her granddaughter was running next to her and they both fell to the ground. Patient endorses pain and bruising to her left wrist. She endorses mildly decreased range of motion in that joint. Patient denies any previous injury to that joint, pain to her left fingers, pain to her left elbow, or numbness/tingling to the area. She endorses a significant medical history including high blood pressure, diabetes, CHF, and hyperlipidemia. Labs Ordered: None necessary Imaging Ordered: Left wrist x-ray Medications Ordered: None necessary, patient declined pain medication Results: Patient's wrist x-ray indicates NO ACUTE BONE OR JOINT ABNORMALITY IDENTIFIED. Diagnosis: Left wrist sprain Consults: Orthopedic surgery (outpatient) Patient Education/Shared MDM: Results of imaging shared with patient. She continues to decline pain medication administration. Patient strongly advised to follow-up with her PCP in the next 2-3 days. She can follow up with Orthopedic surgery as needed. She will be discharged home with an Inderjit wrap to the site but no new prescriptions. Patient may use ibuprofen and Tylenol for pain control. Strict return precautions provided. Patient verbalized understanding and is in agreement with plan. Vital signs stable at time of discharge. All questions answered. Differential Diagnosis Differential diagnosis: Likely sprain and strain of wrist, fracture of wrist and Colles' fracture Imaging Data Attestation: I personally reviewed and interpreted this imaging study as follows: Radiologist's impression: Impressions Wrist X-Ray 04/29/25 11:43 IMPRESSION: 1: NO ACUTE BONE OR JOINT ABNORMALITY IDENTIFIED. Discharge Plan Discharge Clinical Impression: Sprain and strain of wrist Patient Disposition: Home Condition: Stable Instructions: Antibiotic Form, P.R.I.C.E. Treatment (ED), Wrist Sprain (ED) Additional Instructions: Please return to the ER with any worsening symptoms. Follow-up with primary care provider in 2-3 days and Orthopedic surgery as needed. Take all medications as prescribed, including regularly scheduled medications. You may use Tylenol and/or ibuprofen for pain control. Please continue icing the site. Patient Language: Cymraes Prescriptions: No Action No Home Medications Follow-up/Referrals: Clovis Moore MD [Physician] - (orthopedic surgery) PHYSICIAN NOT ON STAFF,NONSTAFF [Non-Staff] - Time of Disposition: 12:00
--- OUTSIDE RECORDS SUMMARY | 2025-04-29 11:24 | XMS_ITS | Encounter Summary ---
Author Organization [facility] Address [address] [place] [address] Care Team Providers Care Administrative Assistant Receptionist Name Role Phone Zana Sauceda MD Unavailable Unavailable Alejandro Verduzco MD Primary Care Provider [phone] Mayra Lugo MD Unavailable Encounter Details Date Type Department Care Team (Late st Contact Info) Description 06/14/2020 Abstract [facility] [address] [place] [id number] Abstract, Doc [facility] Social History Tobacco Use Types Packs/Day Years Used Date Smoking Tobacco: Never Smokeless Tobacco: Never Alcohol Use Standard Drinks/Week Comments No 0 (1 standard drink = 0.6 oz pur e alcohol) Comments Unknown Sex and Gender Information Value Date Recorded Sex Assigned at Female 11/10/2024 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 Legal Sex Female 10:25 PM CDT Gender Identity Not on file Sexual Orientation Not on file 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
--- OUTSIDE RECORDS SUMMARY | 2025-04-29 11:24 | XMS_ITS | Encounter Summary ---
Author Organization [facility] Address [address] [place] [address] Phone Care Team Providers Care Roofing Sales Representative Name Role Phone Alejandro Verduzco MD Primary Care Provider [phone] Kin Carty MD Unavailable [phone] Encounter Details Date Type Department Care Team [...] on file Legal Sex Female 5:43 AM CLINICAL TRIALS MANAGER Gender Identity Not on file Sexual Orientation [...] on filedocumented in this encounter Care Teams Roofing Sales Representative Relationship Specialty Start Date End Date Alejandro Verduzco MD PCP - General Family Medicine 04/20/18 Kin Carty MD Medical Oncologist/Cost Specialist Hematology and Oncology 05/07/18 documented as of this encounter
--- OUTSIDE RECORDS SUMMARY | 2025-04-29 11:24 | XMS_ITS | Clinical Summary ---
Author Organization [facility] Address [address] [place] [address] Care Team Providers Care Clinical Resource Nurse Name Role Phone Alejandro Verduzco MD Primary Care Provider [phone] Mayra Lugo MD Unavailable Allergies Active Allergy [...] 06/28/2019 Chronic venous insufficiency 04/03/2017 Breast cancer ([facility]) 06/03/2016 Essential hypertension 06/03/2016 Bilateral edema of lower extremity 06/03/2016 Hypercholesteremia 06/03/2016 Resolved Problems Problem Noted Date Diagnosed Date Resolved Date Pre-operative cardiovascular examination 08/04/2019 06/16/2020 Shortness of breath 06/03/2016 06/03/20 16 Encounters Date Type Department Care Team Description 02/18/2025 6:44 AM CDT - 02/18/2025 11:59 PM CDT Hospital Encounter [facility] [address] [place] [address] Jany Yin, FORMULA WEIGHER Discharge Disposition: Home or Self Care (Routine Discharge) 02/18/2025 Travel 02/09/2025 7:51 AM CDT - 02/09/2025 11:59 PM CDT Hospital Encounter [facility] [address] [place] [address] Alejandro Verduzco MD Discharge Disposition: Home or [...] Sex Assigned at Female 11/10/2024 10:22 AM ELECT EQUIP MAINT ENG Legal Sex Female 10:25 PM CDT Gender Identity Not on file Sexual Orientation Not on file 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 [address] 02/18/2025, 7:35 AM. HISTORY: Right knee pain. [...] Procedure Note Rocael Mckeon MD - 02/18/2025 [facility] [address] [place] [address] 02/18/2025, 7:35 AM. HISTORY: Right knee pain. [...] 2:34 PM Narrative 02/10/2025 2:40 PM CDT [address] [place] [address] INDICATION: Right lumbar radiculopathy. Posterior right knee [...] Procedure Note Daquan Zhou, DO - 02/10/2025 [place] [id number] [place] [address] INDICATION: Right lumbar radiculopathy. Posterior right knee [...] Relevant to Health Maintenance Insurance MEDICARE MEDICARE [facility] Advance Directives Documents on File Type Date Recorded Patient Coal Hauler Expl anation Power of Communication Specialist 08/13/2019 12:56 PM 08/10 POA FOR HEALTH CARE Care Teams Clinical Resource Nurse Relationship Specialty Start Date End Date Alejandro Verduzco MD [address] [phone] PCP - General FAMILY PRACTICE 04/01/17 Mayra Lugo MD [address] [place] [address] Consulting Physician CARDIOVASCULAR DISEASE 02/13/21
--- OUTSIDE RECORDS SUMMARY | 2025-04-29 11:24 | XMS_ITS | Clinical Summary ---
Author Organization [facility] Address [address] [place] [address] Phone Care Team Providers Care Spouting Installer Name Role Phone Alejandro Verduzco MD Primary Care Provider [phone] Kin Carty MD Unavailable [phone] Allergies Active Allergy Reactions Criticality Noted [...] a day 1 04/13/2018 Active vit D3-vit N-paawiodoe-rjz s [id number] rxdz-uud-hg-mg tablet Take by mouth. 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 Care Teams Spouting Installer Relationship Specialty Start Date End Date Alejandro Verduzco MD PCP - General Family Medicine 04/20/18 Kin Carty MD Medical Oncologist/Financial Supervisor Hematology and Oncology 05/07/18
--- OUTSIDE RECORDS SUMMARY | 2025-04-29 11:24 | XMS_ITS | Encounter Summary ---
Author Organization [facility] Address [address] [place] [address] Care Team Providers Care Cash Management Officer Name Role Phone Zana Sauceda MD Unavailable Unavailable Alejandro Verduzco MD Primary Care Provider [phone] Mayra Lugo MD Unavailable Encounter Details Date Type Department Care Team (Late st Contact Info) Description 05/26/2019 Abstract [facility] [address] [place] [id number] Abstract, Doc [facility] Social History Tobacco Use Types Packs/Day Years Used Date Smoking Tobacco: Never Smokeless Tobacco: Never Alcohol Use Standard Drinks/Week Comments No 0 (1 standard drink = 0.6 oz pur e alcohol) Comments Unknown Sex and Gender Information Value Date Recorded Sex Assigned at Female 11/10/2024 10:22 AM CHIEF LEARNING OFFICER Legal Sex Female 10:25 PM CDT Gender Identity Not on file Sexual Orientation Not on file 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
--- OUTSIDE RECORDS SUMMARY | 2025-04-29 11:24 | XMS_ITS | Referral Summary ---
Author Organization [facility] Address [address] [place] [address] Phone Care Team Providers Care Productivity Engineer Name Role Phone Alejandro Verduzco MD Primary Care Provider [phone] Kin Carty MD Unavailable [phone] Allergies Active Allergy Reactions Criticality Noted [...] a day 1 04/13/2018 Active vit D3-vit M-nskashcwi-dfw s [id number] newm-lls-gn-mg tablet Take by mouth. Active nitroglycerin (NITROSTAT) [...] on file Legal Sex Female 5:43 AM QUALITY ASSURANCE ANALYST Gender Identity Not on file Sexual Orientation [...] on file Insurance MEDICARE FOR LIFE [facility] Care Teams Productivity Engineer Relationship Specialty Start Date End Date Alejandro Verduzco MD PCP - General Family Medicine 04/20/18 Kin Carty MD Medical Oncologist/Farmworker Field Crop Hematology and Oncology 05/07/18
--- OUTSIDE RECORDS SUMMARY | 2025-04-29 11:24 | XMS_ITS | Encounter Summary ---
Author Organization [facility] Address [address] [place] [address] Care Team Providers Care Patient Coordinator Name Role Phone Toni Kat MD Primary Care Provider Zana Sauceda MD Unavailable Unavailable Alejandro Verduzco MD Primary Care Provider Mayra Lugo MD Unavailable Encounter Details Date Type Department Care Team (Late st Contact Info) Description 09/04/2012 [facility] [place] [address] [place] [address] Zana Sauceda MD Social History Tobacco Use Types Packs/Day Years Used Date Smoking Tobacco: Never Alcohol Use Standard Drinks/Week Comments No 0 (1 standard drink = 0.6 oz pur e alcohol) Comments Unknown Sex and Gender Information Value Date Recorded Sex Assigned at Female 11/10/2024 10:22 AM KEY CARRIER Legal Sex Female 10:25 PM CDT Gender Identity Not on file Sexual Orientation Not on file 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 Not on file Not on fi le documented as of this encounter Plan of Treatment Not on file documented as of this encounter Visit Diagnoses Not on filedocumented in this encounter Care Teams Patient Coordinator Relationship Specialty Start Date End Date Toni Kat MD [address] [place] [address] PCP - General INTERNAL MEDICINE 05/13/16 06/02/16 Alejandro Verduzco MD [address] [place] [address] PCP - General FAMILY PRACTICE 04/01/17 Zana Sauceda MD [address] [place] [address] INTERVENTIONAL CARDIOLOGY 05/13/16 02/12/21 Mayra Lugo MD [address] [place] [address] Consulting Physician CARDIOVASCULAR DISEASE 02/13/21 documented as of this encounter
== END 2025-04-29 12:20 | disposition home or self-care (01) ==
PROVIDERS: Emergency Provider Registered Nurse; PCP Family Medicine
DX: S63.502A Unspecified sprain of left wrist, initial encounter (principal); S66.912A Strain of unspecified muscle, fascia and tendon at wrist and hand level, left hand, initial encounter; I11.0 Hypertensive heart disease with heart failure; I50.9 Heart failure, unspecified; E78.5 Hyperlipidemia, unspecified; E11.9 Type 2 diabetes mellitus without complications; M17.11 Unilateral primary osteoarthritis, right knee; W03.XXXA Other fall on same level due to collision with another person, initial encounter
CPT/HCPCS: 73110; 99283